=== PATIENT | female | born 1940 | race Caucasian/White ===

== ENCOUNTER 2020-12-19 05:38 | Inpatient (IN) | payer BC, MEDICARE, OTHER ==
[~2020-12-19] VITALS: Ht 165.1 cm; Wt 65.8 kg
[~2020-12-19 05:38] MED LIST: DESO15CR11 TP; DIPH25CA83 PO; HYDR25TA4 PO; IBUP-1957 PO; OLME20TA13 PO
--- NOTE | 2020-12-19 06:00 | NUR ---
Patient BIB [facility] from home for c/o weakness. Patient states she was sitting on edge of bed and slid down. Denies head trauma from fall today. Is A/Ox3. Denies N/V or diarrhea and SOB, CP.
[2020-12-19 06:15] LABS: HEMATOCRIT 39.7 % (31.2-41.9); MEAN CORPUSCULAR HEMOGLOBIN 28.4 uug (24.7-32.8); MEAN CORPUSCULAR VOLUME 86.3 fL (75.5-95.3); PLATELET COUNT (AUTO) 242 K/uL (179-408)
--- NOTE | 2020-12-19 06:15 | NUR ---
ERMD into eval patient
[2020-12-19 06:26] LABS: *BILIRUBIN,URIN NEGATIVE (NEGATIVE); *BLOOD, URINE NEGATIVE (NEGATIVE); *CLARITY,URINE CLEAR (CLEAR); *COLOR,URINE YELLOW (YELLOW); *KETONES,URINE NEGATIVE (NEGATIVE); *UROBILINOGEN,URINE 0.2 E.U./dl (NORMAL); LEUKOCYTE ESTERASE ,URINE NEGATIVE (NEGATIVE); NITRITE, URINE NEGATIVE (NEGATIVE); UGLUCOSE NEGATIVE (NEGATIVE)
[2020-12-19 06:31] LABS: POTASSIUM 3.3 mmol/L (3.5-5.1)
[2020-12-19] MEDS ORDERED: gabapentin PO (06:36)
[2020-12-19] MEDS ORDERED: DULO20CA PO (06:36)
[2020-12-19] MEDS ORDERED: ASPIRIN 81 MG TAB.CHEW ONE (06:42)
[2020-12-19 06:44] LABS: BILIRUBIN,DIRECT 0.1 mg/dL (0.0-0.2); BILIRUBIN,TOTAL 0.4 mg/dL (0.2-1.0); TOTAL PROTEIN, SERUM 7.4 g/dL (6.4-8.2)
[2020-12-19] MEDS ORDERED: ASPIRIN 81 MG TAB.CHEW PO ONE (06:45)
[2020-12-19] MEDS ORDERED: DEXAMETHASONE SOD PHOSPHATE 4 MG INJ IV ONE (06:45)
[2020-12-19] MEDS ORDERED: POTASSIUM BICARBONATE/CIT AC 25 MEQ TABLET.EFF PO ONE (06:45)
--- NOTE | 2020-12-19 06:49 | NUR ---
Troponin 0.115 per Baldemar in lab - relayed to ER
[2020-12-19] MEDS ORDERED: DEXAMETHASONE SOD PHOSPHATE 10 MG INJ ONE (06:51)
[2020-12-19] MEDS ORDERED: POTASSIUM BICARBONATE/CIT AC 25 MEQ TABLET.EFF ONE (06:55)
[2020-12-19] MEDS ORDERED: IV NS 1000 ML 1,000 ML IV ONE (07:00)
[2020-12-19] MEDS ORDERED: IV NORMAL SALINE 250 ML IV ONE (08:03)
[2020-12-19] MEDS ORDERED: IOHEXOL 350 100 ML INFUS..BTL ONE (08:03)
[2020-12-19] MEDS ORDERED: SWABABLE VALVE TRANSFER SET EA MC ONE (08:03)
--- NOTE | 2020-12-19 09:16 | NUR ---
0725am: 1st contact with patient : AOX4, respiration:easy, afebrile, calm, in a bañuelos's position on gurney, position changes assisted, comfort and safety measures maintained 0900am: patient is for CTA chest and COVID isolation telemetry bed, no available telemetry nurse at this time per 3rd floor machine ii cutter Merlie 0910am: patient is now in CT scan at this time with mask on 0915am: Per Dr Porter, this patient was accepted by [facility] Ta Delaney for telemetry admission with admission diagnoses of COVID pneumonia and elevated troponin 0916am: nursing supervisor education Hyd notified re: need for COVID isolation telemetry nurse & bed, pending callback
--- NOTE | 2020-12-19 09:56 | NUR ---
Patient voided by bedside commode, no shortness of breath seen, denies chest pains, SpO2 levels=88%-92% room air, nasal cannula was placed, new gown on, new linen replaced on gurney. Patient is still waiting for [facility] telemetry bed and nurse.
--- NOTE | 2020-12-19 11:41 | NUR ---
Patient was seen resting comfortably on gurney with eyes closed. SpO2 levels with nasal cannula@2 liters were 92%-96% in supine position. Patient ate the bread from her ham sandwich and drank all the juices. Patient was updated regarding her room & telemetry nurse's availability. All concerns and questions were answered.
[2020-12-19] MEDS ORDERED: ALBUTEROL SULFATE 8 GM HFA.AER.AD IH PRN (11:45)
[2020-12-19] MEDS ORDERED: ONDANSETRON 4 MG/2 ML VIAL IV PRN (11:45)
--- NOTE | 2020-12-19 12:20 | NUR ---
JAY Kirkpatrick accepted nursing hands report. Patient's lunch tray@bedside.
[2020-12-19 12:30] VITALS: BP 135/57
--- NOTE | 2020-12-19 13:00 | NUR ---
RECEIVED REPORT OF PT FROM JAY ALFARO. PT ADMITTED TO TELE FOR COVID/PNA/NSTEMI. PT ON 2L O2 VIA NC, SATURATING AT 97%, ON ROOM AIR PT DESATS TO 92%. PT HS SOB WITH EXERTION, C/O SEVERE WEAKNESS, IV ON THE RIGHT AC 20G, SL, TROPONIN LEVELS 0.115. PT A/OX4 BED LOW AND LOCKED, ISOLATION FOR COVID, CALL LIGHT WITHIN REACH, WILL CONTINUE WITH PLAN OF CARE. ,
[2020-12-19] MEDS: ACETAMINOPHEN 325 MG TABLET PO PRN ×2 (13:53→20:47)
[2020-12-19 16:00] VITALS: BP 130/54
[2020-12-19 20:39] VITALS: BP 177/88
[2020-12-19] MEDS: hydrALAZINE HCL 20 MG/1 ML VIAL IV PRN (20:48)
--- NOTE | 2020-12-19 21:45 | NUR ---
Received pt resting in bed. AAO x4. On 2L O2 via NC, no acute distress noted. BP elevated 177/88. Notified Rhett BLADE WORKER with new order for Hydralazine 10mg IV q4h prn. Carried out order. Pt denies CP, SOB, and dizziness. Safety measures maintained. Call light and personal items within reach. Will continue to monitor.
[2020-12-20 00:14] VITALS: BP 178/51
[2020-12-20] MEDS: hydrALAZINE HCL 20 MG/1 ML VIAL IV PRN (00:56)
[2020-12-20 04:00] VITALS: BP 126/66
[2020-12-20 06:45] LABS: HEMATOCRIT 42.4 % (31.2-41.9); MEAN CORPUSCULAR HEMOGLOBIN 28.9 uug (24.7-32.8); MEAN CORPUSCULAR VOLUME 86.4 fL (75.5-95.3); PLATELET COUNT (AUTO) 264 K/uL (179-408)
[2020-12-20 07:27] LABS: BILIRUBIN,TOTAL 0.3 mg/dL (0.2-1.0); CREATININE 0.9 mg/dL (0.6-1.3); MAGNESIUM 2.1 mg/dL (1.8-2.4); PHOSPHOROUS 2.8 mg/dL (2.5-4.9); POTASSIUM 3.5 mmol/L (3.5-5.1); TOTAL PROTEIN, SERUM 7.6 g/dL (6.4-8.2)
--- NOTE | 2020-12-20 07:30 | NUR ---
Received patient awake in bed. AOx4. On 2L NC, saturating at 96-97%. No signs of acute distress. Patient denies pain/ discomfort. Patient with right AC #20 heplock, patent and intact. Call light within reach. Will continue to monitor.
[2020-12-20] MEDS ORDERED: POTASSIUM CHLORIDE 20 MEQ POWDER PACKET GT ONE (07:45)
[2020-12-20] MEDS ORDERED: POTASSIUM CHLORIDE 20 MEQ TAB.PRT.SR PO ONE (08:00)
[2020-12-20] MEDS ORDERED: ENOXAPARIN SODIUM 40 MG/0.4 ML DISP.SYRIN SQ SCH (09:00)
[2020-12-20] MEDS ORDERED: ASPIRIN 81 MG TAB.CHEW PO SCH (09:00)
[2020-12-20] MEDS ORDERED: Medication Not On Formulary EA (Olmesartan Medoxomil (Benicar) 20 MG) PO SCH (09:00)
[2020-12-20] MEDS: DULOXETINE 20 MG CAPSULE.DR PO SCH ×2 (09:08→16:21)
[2020-12-20] MEDS: VALSARTAN 160 MG TABLET PO SCH (09:08)
[2020-12-20] MEDS: ACETAMINOPHEN 325 MG TABLET PO PRN (09:12)
[2020-12-20 11:42] VITALS: BP 135/70
[2020-12-20] MEDS ORDERED: REMDESIVIR (CHARGED) 200 MG in IV NORMAL SALINE 210 ML IV ONE (14:00)
[2020-12-20] MEDS: DEXAMETHASONE SOD PHOSPHATE 4 MG INJ IV SCH (14:18)
[2020-12-20] MEDS ORDERED: GABA300C PO (15:47)
[2020-12-20] MEDS ORDERED: DULO60CA45 PO (15:53)
[2020-12-20] MEDS ORDERED: TRAZ-182 PO (15:55)
[2020-12-20 15:56] VITALS: BP 100/67
[2020-12-20] MEDS ORDERED: FURO-152 PO (15:56)
--- NOTE | 2020-12-20 18:58 | NUR ---
Patient resting in bed. On 2L O2 via NC, saturating 98-99%. No signs of acute distress. Patient denies pain/ discomfort. Compliant with medications and care. Safety measures provided. Needs anticipated and met. Will endorse to incoming shift for continuity of care.
--- NOTE | 2020-12-20 19:00 | NUR ---
Patient report received. Patient is seen resting in bed. Awake, alert and oriented x 3 to person, place, and time. Patient noted to have occasional confusion. No signs of distress at this time. Patient is comfortable on 2 L of oxygen Via Nasal Cannula. Oxygen saturation within normal limits. No reports of pain. Patient is ambulatory. IV left AC, patent. Skin intact. Call light within reach. Bed in low and locked position. Fall and safety precautions in place.
[2020-12-20 20:00] VITALS: BP 136/72
[2020-12-20] MEDS ORDERED: OLME20TA13 PO (20:29)
[2020-12-21] VITALS: BP 131/67
[2020-12-21 04:00] VITALS: BP 153/58
[2020-12-21 07:32] LABS: HEMATOCRIT 41.1 % (31.2-41.9); MEAN CORPUSCULAR HEMOGLOBIN 28.9 uug (24.7-32.8); MEAN CORPUSCULAR VOLUME 87.3 fL (75.5-95.3); PLATELET COUNT (AUTO) 261 K/uL (179-408)
[2020-12-21 07:47] LABS: BILIRUBIN,DIRECT 0.1 mg/dL (0.0-0.2); BILIRUBIN,TOTAL 0.3 mg/dL (0.2-1.0); CREATININE 0.8 mg/dL (0.6-1.3); POTASSIUM 3.4 mmol/L (3.5-5.1); TOTAL PROTEIN, SERUM 7.4 g/dL (6.4-8.2)
[2020-12-21] MEDS: DULOXETINE 20 MG CAPSULE.DR PO SCH ×2 (09:11→17:07)
[2020-12-21] MEDS: DEXAMETHASONE SOD PHOSPHATE 4 MG INJ IV SCH (09:12)
[2020-12-21] MEDS ORDERED: POTASSIUM CHLORIDE 20 MEQ TAB.PRT.SR PO ONE ×2 (09:15→09:30)
[2020-12-21] MEDS: APIXABAN 5 MG TABLET PO SCH ×2 (09:20→20:57)
[2020-12-21] MEDS: VALSARTAN 160 MG TABLET PO SCH (09:30)
[2020-12-21] MEDS: AMIODARONE HCL 200 MG TABLET PO SCH ×2 (09:31→20:56)
[2020-12-21 12:00] VITALS: BP 144/83
[2020-12-21] MEDS: REMDESIVIR (CHARGED) 100 MG in IV NORMAL SALINE 100 ML IV SCH (13:20)
[2020-12-21 16:26] VITALS: BP 152/73
--- NOTE | 2020-12-21 18:17 | NUR ---
End of Shift Note Patient continue ATB treatment for covid+. Patient continue on oxygen at 2LPM at nasal cannula, saturation ar 93-95%. Patient spoke to daughter regarding condition of . Patient verbalize sadness, able to cope with family support. Patient no c/o of pain/discomfort noted. will continue monitor
--- NOTE | 2020-12-21 19:45 | NUR ---
Received pt in bed, awake and verbally responsive, able to make needs known. On oxygen at 2LPM, no signs of distress noted. Denies pain or discomfort. IV access intact and patent. Safety measures initiated, call light within reach.
[2020-12-21 20:35] VITALS: BP 137/68
[2020-12-21] MEDS: ACETAMINOPHEN 325 MG TABLET PO PRN (20:35)
--- NOTE | 2020-12-21 20:56 | NUR ---
Pt on NSR on tele at 55/min. Held amiodarone 200mg due to HR <60. will continue to monitor.
[2020-12-22 00:29] VITALS: BP 129/63
[2020-12-22] MEDS: ACETAMINOPHEN 325 MG TABLET PO PRN ×2 (03:36→12:07)
[2020-12-22] MEDS: hydrALAZINE HCL 20 MG/1 ML VIAL IV PRN (04:28)
[2020-12-22 04:33] VITALS: BP 166/62
--- NOTE | 2020-12-22 06:24 | NUR ---
Slept intermittently through the night, no signs of distress noted. Tolerated due medications well. Instructed pt how to do oral care. All needs attended to and met. No significant change in condition noted through the night.
[2020-12-22 07:45] LABS: HEMATOCRIT 42.5 % (31.2-41.9); MEAN CORPUSCULAR HEMOGLOBIN 28.8 uug (24.7-32.8); MEAN CORPUSCULAR VOLUME 86.8 fL (75.5-95.3); PLATELET COUNT (AUTO) 320 K/uL (179-408)
[2020-12-22 08:14] LABS: BILIRUBIN,DIRECT 0.1 mg/dL (0.0-0.2); BILIRUBIN,TOTAL 0.3 mg/dL (0.2-1.0); POTASSIUM 3.9 mmol/L (3.5-5.1); TOTAL PROTEIN, SERUM 7.2 g/dL (6.4-8.2)
[2020-12-22] MEDS: DULOXETINE 20 MG CAPSULE.DR PO SCH ×2 (08:43→17:08)
[2020-12-22] MEDS: DEXAMETHASONE SOD PHOSPHATE 4 MG INJ IV SCH (08:43)
[2020-12-22] MEDS: APIXABAN 5 MG TABLET PO SCH ×2 (08:46→21:45)
[2020-12-22] MEDS: VALSARTAN 160 MG TABLET PO SCH (08:53)
[2020-12-22] MEDS: AMIODARONE HCL 200 MG TABLET PO SCH ×2 (08:53→21:01)
[2020-12-22 11:12] VITALS: BP 157/70
[2020-12-22] MEDS: REMDESIVIR (CHARGED) 100 MG in IV NORMAL SALINE 100 ML IV SCH (13:22)
[2020-12-22 15:31] VITALS: BP 132/72
--- NOTE | 2020-12-22 19:31 | NUR ---
Patient resting in bed. AOx4. On 2L O2 via NC, saturating at 96-97%. No signs of acute distress. Patient denies pain/ discomfort. Compliant with medications and care. Safety measures provided. Needs anticipated and met. Call light within reach. Will endorse to incoming shift for continuity of care.
[2020-12-22 20:24] VITALS: BP 151/88
[2020-12-23 00:09] VITALS: BP 175/72
[2020-12-23 01:02] VITALS: BP 149/89
[2020-12-23 04:24] VITALS: BP 161/77
[2020-12-23] MEDS: hydrALAZINE HCL 20 MG/1 ML VIAL IV PRN ×2 (06:15→20:58)
--- NOTE | 2020-12-23 06:43 | NUR ---
Patient slept intermittently.O2 at 2LPM via NC saturating at 95%.No respiratory distress noted. Able to ambulates to bathroom . Denies pain at this time. Bp > 160 this morning . Medicated with hydralazine IVP ..No a/r noted.Iv on left hand patent and intact.Continue on isolation precaution for covid. SAfety measures in place. Will endorse to oncoming shift.
[2020-12-23 08:24] LABS: HEMATOCRIT 43.8 % (31.2-41.9); MEAN CORPUSCULAR HEMOGLOBIN 28.3 uug (24.7-32.8); MEAN CORPUSCULAR VOLUME 86.1 fL (75.5-95.3); PLATELET COUNT (AUTO) 373 K/uL (179-408)
[2020-12-23 08:46] LABS: BILIRUBIN,DIRECT 0.1 mg/dL (0.0-0.2); BILIRUBIN,TOTAL 0.5 mg/dL (0.2-1.0); CREATININE 0.9 mg/dL (0.6-1.3); MAGNESIUM 2.3 mg/dL (1.8-2.4); POTASSIUM 3.2 mmol/L (3.5-5.1); TOTAL PROTEIN, SERUM 7.3 g/dL (6.4-8.2)
[2020-12-23] MEDS: DULOXETINE 20 MG CAPSULE.DR PO SCH ×2 (09:08→16:32)
[2020-12-23] MEDS: APIXABAN 5 MG TABLET PO SCH ×2 (09:09→21:34)
[2020-12-23] MEDS: VALSARTAN 160 MG TABLET PO SCH (09:14)
[2020-12-23] MEDS: DEXAMETHASONE SOD PHOSPHATE 4 MG INJ IV SCH (09:15)
[2020-12-23] MEDS: AMIODARONE HCL 200 MG TABLET PO SCH ×2 (09:15→20:58)
[2020-12-23] MEDS ORDERED: POTASSIUM CHLORIDE 20 MEQ TAB.PRT.SR PO ONE (10:00)
[2020-12-23] MEDS: ACETAMINOPHEN 325 MG TABLET PO PRN ×2 (11:55→20:57)
[2020-12-23 12:00] VITALS: BP 157/62
[2020-12-23] MEDS: REMDESIVIR (CHARGED) 100 MG in IV NORMAL SALINE 100 ML IV SCH (13:16)
[2020-12-23 16:00] VITALS: BP 159/67
[2020-12-23 20:25] VITALS: BP 164/71
[2020-12-24] VITALS (8 sets, daily range): BP systolic 105–164; BP diastolic 52–79
[2020-12-24] MEDS: ACETAMINOPHEN 325 MG TABLET PO PRN ×2 (06:52→20:19)
--- NOTE | 2020-12-24 07:04 | NUR ---
Pt slept throughout the night. Denies SOB or chest pain. Able to make needs known. Tolerates room air. Safety and comfort provided. Will endorse to day shift.
[2020-12-24 07:19] LABS: HEMATOCRIT 43.8 % (31.2-41.9); MEAN CORPUSCULAR HEMOGLOBIN 28.5 uug (24.7-32.8); MEAN CORPUSCULAR VOLUME 85.9 fL (75.5-95.3); PLATELET COUNT (AUTO) 410 K/uL (179-408)
[2020-12-24 07:54] LABS: BILIRUBIN,DIRECT 0.1 mg/dL (0.0-0.2); BILIRUBIN,TOTAL 0.4 mg/dL (0.2-1.0); CREATININE 0.9 mg/dL (0.6-1.3); POTASSIUM 3.7 mmol/L (3.5-5.1); TOTAL PROTEIN, SERUM 7.2 g/dL (6.4-8.2)
[2020-12-24] MEDS: DEXAMETHASONE SOD PHOSPHATE 4 MG INJ IV SCH (08:36)
[2020-12-24] MEDS: AMIODARONE HCL 200 MG TABLET PO SCH ×2 (08:38→20:20)
[2020-12-24] MEDS: FUROSEMIDE 20 MG TABLET PO SCH ×2 (08:38→17:06)
[2020-12-24] MEDS: GABAPENTIN 300 MG CAPSULE PO SCH ×2 (08:39→17:06)
[2020-12-24] MEDS: DULOXETINE 20 MG CAPSULE.DR PO SCH (08:39)
[2020-12-24] MEDS: VALSARTAN 160 MG TABLET PO SCH (08:39)
[2020-12-24] MEDS: APIXABAN 5 MG TABLET PO SCH ×2 (08:40→20:22)
[2020-12-24] MEDS ORDERED: DULOXETINE 60 MG CAPSULE.DR PO SCH ×2 (09:00)
--- NOTE | 2020-12-24 11:20 | NUR ---
PATIENT SEEN AND EXAMINED BY DR MCRAE WITH NEW ORDERS AND NOTED.
[2020-12-24] MEDS: REMDESIVIR (CHARGED) 100 MG in IV NORMAL SALINE 100 ML IV SCH (13:16)
--- NOTE | 2020-12-24 13:49 | NUR ---
D/C PLANNING CALL RECEIVED FROM PATIENTS DAUGHTER STATED THAT SHE LIVES IN [place] AND IS ARRANGING FOR HER MOM TO COME STAY WITH HER WILL BE ABLE TO PICK HER UP TOMORROW DONELL HYATT HERE AND AWARE STATED WILL PREPARE THE DISCHARGE TODAY BUT ITS OKAY IF THE DAUGHTER PICKS HER UP TOMORROW.
--- NOTE | 2020-12-24 14:40 | NUR ---
CALL RECEIVED FROM PATIENTS DAUGHTER TYLER STATED THAT NO ONE HAS CALLED HER RE PLANS FOR HER MOMS CARE POST DISCHARGE SHE WILL NOT BE ABLE TO CARE FOR SELF WILL NEED TO HIRE HELP MESSAGE SENT TO [employer] THE [employer] OPERATOR WITH [employer] PHONE NUMBER TO REACH OUT TO HER.
[2020-12-24] MEDS ORDERED: AMIO200T5 PO ×2 (16:58→17:10)
[2020-12-24] MEDS ORDERED: VALS160T2 PO (16:58)
[2020-12-24] MEDS ORDERED: APIX5TAB PO (16:58)
[2020-12-24] MEDS: DULOXETINE 60 MG CAPSULE.DR PO SCH (17:06)
--- NOTE | 2020-12-24 18:23 | NUR ---
CALL RECEIVED FROM PATIENTS DAUGHTER STATED THAT SHE SPOKE WITH PURNIMA AND STATED THAT SHE WILL NOT BE ABLE TO TAKE HER MOM HOME TOMORROW IF SHE IS STILL COVID POSITIVE ENCOURAGED HER TO CALL TOMORROW AND MAYBE THE PEST CONTROL SERVICE REPRESENTATIVE WILL HELP HER FIND PLACEMENT BAS4ED ON HER INSURANCE ALSO WANTED TO TALK WITH THE PROVIDER [employer] PHONE NUMBER GIVEN TO HER .
--- NOTE | 2020-12-24 19:30 | NUR ---
RECEIVED PT AWAKE, ALERT AND ORIENTEDX3. PT IN NO ACUTE DISTRESS. IV INTACT. PT ON ROOM AIR. PT ON SINUS RHYTHM. SAFETY AND COMFORT PROVIDED. WILL CONTINUE TO MONITOR.
[2020-12-24] MEDS: TRAZODONE 50 MG TABLET PO SCH (20:19)
[2020-12-25] VITALS: BP 107/48
[2020-12-25 04:00] VITALS: BP 108/52
--- NOTE | 2020-12-25 06:33 | NUR ---
PT SLEPT INTERMITTENTLY. PT IN NO ACUTE RESPIRATORY DISTRESS. IV INTACT. PT ON ROOM AIR. PT ON SINUS RHYTHM. TYLENOL 650 MG PRN GIVEN AT 2019H. PRESCRIBED MEDICATION GIVEN AND PT TOLERATED IT WELL. SAFETY AND COMFORT PROVIDED. ALL NEEDS ARE MET. WILL ENDORSE TO INCOMING NURSE FOR CONTINUITY OF CARE.
--- NOTE | 2020-12-25 07:30 | NUR ---
Received resting but easily arousable. Breathing even and unlabored. No sob noted. Denies pain or difficulty breathing Spo2 98% on room air. Patient has no complaints at this time. Safety measures in place. Kept comfortable. Call light within reach. Will continue to monitor.
[2020-12-25] MEDS: FUROSEMIDE 20 MG TABLET PO SCH ×2 (08:58→16:09)
[2020-12-25] MEDS: DULOXETINE 60 MG CAPSULE.DR PO SCH ×2 (08:58→16:09)
[2020-12-25] MEDS: AMIODARONE HCL 200 MG TABLET PO SCH ×2 (08:59→20:33)
[2020-12-25] MEDS: GABAPENTIN 300 MG CAPSULE PO SCH ×2 (08:59→16:09)
[2020-12-25] MEDS: DEXAMETHASONE SOD PHOSPHATE 4 MG INJ IV SCH (09:00)
[2020-12-25] MEDS: APIXABAN 5 MG TABLET PO SCH ×2 (09:01→21:29)
[2020-12-25] MEDS: ENSURE ENLIVE (VAN) 240 ML LIQUID PO SCH (09:02)
--- NOTE | 2020-12-25 10:00 | NUR ---
Patient stated she doesn't want [facility] right now.
[2020-12-25 11:00] VITALS: BP 125/59
[2020-12-25] MEDS: ACETAMINOPHEN 325 MG TABLET PO PRN ×2 (11:33→20:33)
[2020-12-25] MEDS: VALSARTAN 160 MG TABLET PO SCH (11:33)
[2020-12-25 15:48] VITALS: BP 96/54
--- NOTE | 2020-12-25 17:07 | NUR ---
Spoke with patient's dtr and given update. Sue BLACKWELL provided dtr's phone number per request re rehab placement.
--- NOTE | 2020-12-25 19:19 | NUR ---
Alert and oriented with episodes of forgetfulness. No respiratory distress. On room air spo2 94%. Denies pain or discomfort. Iv intact and patent. Safety maintained. Needs attended. Kept comfortable. Call light within reach. Endorsed accordingly.
--- NOTE | 2020-12-25 19:30 | NUR ---
RECEIVED PT AWAKE, ALERT AND ORIENTEDX3 WITH EPISODES OF FORGETFULNESS. PT IN NO ACUTE RESPIRATORY DISTRESS. IV INTACT. PT ON ROOM AIR. PT ON SINUS RHYTHM. PT CAN MAKE HER NEEDS KNOWN. SAFETY AND COMFORT PROVIDED. WILL CONTINUE TO MONITOR.
[2020-12-25 20:00] VITALS: BP 114/57
[2020-12-25] MEDS: TRAZODONE 50 MG TABLET PO SCH (20:32)
[2020-12-26] VITALS: BP 101/47
[2020-12-26 04:00] VITALS: BP 126/62
--- NOTE | 2020-12-26 06:16 | NUR ---
PT SLEPT INTERMITTENTLY. PT IN NO ACUTE DISTRESS. IV INTACT. PT ON ROOM AIR. PRESCRIBED MEDICATION GIVEN AND PT TOLERATED IT WELL. TYLENOL PRN 650MG GIVEN AT 2032H. PT HAD TENDENCY TO FORGET. NEEDS REORIENTATION. SAFETY AND COMFORT PROVIDED. WILL ENDORSE TO INCOMING NURSE FOR CONTINUITY OF CARE.
[2020-12-26 08:00] VITALS: BP 118/60
--- NOTE | 2020-12-26 08:00 | NUR ---
Received patient alert/orientedx3. On room air, no respiratory distress noted. IV heplock intact to the left hand. Call light within reach. Maintained safety precautions. Will continue to monitor.
[2020-12-26] MEDS: DEXAMETHASONE SOD PHOSPHATE 4 MG INJ IV SCH (08:39)
[2020-12-26] MEDS: FUROSEMIDE 20 MG TABLET PO SCH ×2 (08:39→16:04)
[2020-12-26] MEDS: GABAPENTIN 300 MG CAPSULE PO SCH ×2 (08:39→16:04)
[2020-12-26] MEDS: VALSARTAN 160 MG TABLET PO SCH (08:39)
[2020-12-26] MEDS: DULOXETINE 60 MG CAPSULE.DR PO SCH ×2 (08:40→16:04)
[2020-12-26] MEDS: APIXABAN 5 MG TABLET PO SCH ×2 (08:42→20:39)
[2020-12-26] MEDS: AMIODARONE HCL 200 MG TABLET PO SCH ×2 (08:42→20:39)
[2020-12-26] MEDS: ENSURE ENLIVE (VAN) 240 ML LIQUID PO SCH (08:43)
--- NOTE | 2020-12-26 09:00 | NUR ---
Patient was noted with HR55. Amidarone was not given. Will continue to monitor.
[2020-12-26 11:00] VITALS: BP 121/53
[2020-12-26 16:00] VITALS: BP 114/50
--- NOTE | 2020-12-26 17:49 | NUR ---
Patient is alert/orientedx4. Denies pain or discomfort. Frequent visual checks done. MD made rounds and acknowledged. Heplock intact. Patient is on room air. No Distress identified. Call light within reach. All needs attended. All due meds given. Will continue to monitor for any significant changes.
--- NOTE | 2020-12-26 18:31 | NUR ---
Patient had 1 episode of emesis. She stated the rice for dinner got stuck on her throat and had to forcefully cough it out. Denies dizziness or nausea. Assisted with her needs. No concerns at this time. Denies pain and discomfort. Kept call light within reach. All due meds given. Will endorse to the next shift.
[2020-12-26 20:00] VITALS: BP_SYST 108; BP_SYST 114; BP_DIAS 60; BP_DIAS 69
[2020-12-26] MEDS: TRAZODONE 50 MG TABLET PO SCH (20:38)
[2020-12-27] VITALS: BP 103/58
[2020-12-27 04:00] VITALS: BP 117/59
--- NOTE | 2020-12-27 06:48 | NUR ---
Shift End Report: Uneventful night. All needs attended and met. Slept good,. VS stable.
--- NOTE | 2020-12-27 07:10 | NUR ---
received patient in bed sleeping in stable condition. patient on room air. no SOB, pain or discomfort noted. call light within reach. will continue to monitor.
[2020-12-27] MEDS: DEXAMETHASONE SOD PHOSPHATE 4 MG INJ IV SCH (08:54)
[2020-12-27] MEDS: FUROSEMIDE 20 MG TABLET PO SCH ×2 (08:56→17:09)
[2020-12-27] MEDS: GABAPENTIN 300 MG CAPSULE PO SCH ×2 (08:56→17:09)
[2020-12-27] MEDS: DULOXETINE 60 MG CAPSULE.DR PO SCH ×2 (08:57→17:09)
[2020-12-27] MEDS: AMIODARONE HCL 200 MG TABLET PO SCH ×2 (08:58→20:15)
[2020-12-27] MEDS: ENSURE ENLIVE (VAN) 240 ML LIQUID PO SCH (08:58)
[2020-12-27] MEDS: APIXABAN 5 MG TABLET PO SCH ×2 (09:00→20:14)
[2020-12-27] MEDS: VALSARTAN 160 MG TABLET PO SCH (09:27)
[2020-12-27 11:30] VITALS: BP 110/54
[2020-12-27 15:37] VITALS: BP 99/55
--- NOTE | 2020-12-27 18:15 | NUR ---
PATIENT IN BED AWAKE IN STABLE CONDITION HOB ELEVATED, NO COMPLAINS OF SOB, PAIN OR DISCOMFORT AT THIS TIME. ON ROOM AIR, SATURATION AT 96%. IV PATENT AND INTACT. CALL LIGHT AND BELONGINGS WITHIN REACH. WILL REPORT TO ONCOMING SHIFT.
--- NOTE | 2020-12-27 19:20 | NUR ---
Patient report received. Patient seen in her room resting in bed. Awake, alert and oriented x 3 to person, place, and time. No signs of distress at this time. Comfortable on room air. No reports of shortness of breath. Skin is intact. Fall and safety precautions in place. Call light within reach. Bed in low and locked position.
[2020-12-27] MEDS: TRAZODONE 50 MG TABLET PO SCH (20:13)
[2020-12-28 00:24] VITALS: BP 122/60
[2020-12-28 04:00] VITALS: BP 137/62
--- NOTE | 2020-12-28 07:04 | NUR ---
Patient resting in bed. Awake, alert and oriented x 3 to person, place, and time. Patient is comfortable on room air. No signs or reports of shortness of breath. Medications given as ordered. Fall and safety precautions in place. Call light witin reach. Patient is eager to go home.
--- NOTE | 2020-12-28 07:30 | NUR ---
Received patient is bed, awake and alert times 4 Patient is on room air saturation well. Patient has a left hand 20 gauge IV. No sign of distress noted at this time. Safety precautions are in place. Will continue to monitor.
[2020-12-28] MEDS: FUROSEMIDE 20 MG TABLET PO SCH (09:30)
[2020-12-28] MEDS: AMIODARONE HCL 200 MG TABLET PO SCH ×2 (09:30→20:24)
[2020-12-28] MEDS: VALSARTAN 160 MG TABLET PO SCH (09:30)
[2020-12-28] MEDS: DULOXETINE 60 MG CAPSULE.DR PO SCH ×2 (09:31→17:40)
[2020-12-28] MEDS: APIXABAN 5 MG TABLET PO SCH ×2 (09:31→20:24)
[2020-12-28] MEDS: GABAPENTIN 300 MG CAPSULE PO SCH ×2 (09:31→17:40)
[2020-12-28] MEDS: ENSURE ENLIVE (VAN) 240 ML LIQUID PO SCH (09:32)
[2020-12-28] MEDS: DEXAMETHASONE SOD PHOSPHATE 4 MG INJ IV SCH (09:32)
[2020-12-28 12:00] VITALS: BP 135/80
[2020-12-28 15:47] VITALS: BP 123/75
--- NOTE | 2020-12-28 19:43 | NUR ---
Patient left resting in bed no sign of distress noted. All medications given as ordered. Safety ,measures implemented. Will endorse to oncoming nurse.
[2020-12-28] MEDS: TRAZODONE 50 MG TABLET PO SCH (20:24)
[2020-12-28 20:25] VITALS: BP 120/61
[2020-12-29 04:35] VITALS: BP 137/53
--- NOTE | 2020-12-29 08:00 | NUR ---
PT IN BED RESTING, A/OX4, ON ROOM AIR, NO SIGNS OF DISTRESS, NO REPORTS OF PAIN. PT BED LOW AND LOCKED, CALL LIGHT WITHIN REACH, PT AMBULATORY, BRP, PT HAS LEFT HAND 22G SL. PT VITALS STABLE. WILL CONTINUE TO MONITOR.
[2020-12-29 09:02] VITALS: BP 137/63
[2020-12-29] MEDS: AMIODARONE HCL 200 MG TABLET PO SCH (09:03)
[2020-12-29 09:04] VITALS: BP 137/63
[2020-12-29] MEDS: FUROSEMIDE 20 MG TABLET PO SCH (09:04)
[2020-12-29] MEDS: DULOXETINE 60 MG CAPSULE.DR PO SCH (09:04)
[2020-12-29] MEDS: GABAPENTIN 300 MG CAPSULE PO SCH (09:04)
[2020-12-29] MEDS: VALSARTAN 160 MG TABLET PO SCH (09:04)
[2020-12-29] MEDS: APIXABAN 5 MG TABLET PO SCH (09:05)
[2020-12-29] MEDS: ENSURE ENLIVE (VAN) 240 ML LIQUID PO SCH (09:05)
[2020-12-29] MEDS: DEXAMETHASONE SOD PHOSPHATE 4 MG INJ IV SCH (09:05)
--- NOTE | 2020-12-29 10:00 | NUR ---
PT SECOND COVID RAPID TEST RESULT CAME BACK NEGATIVE. PT AND HOSPITALIST MADE AWARE.
--- NOTE | 2020-12-29 14:20 | NUR ---
PT DISCHARGED HOME WITH ALL BELONGINGS, PT AMBULATORY WITH WALKER, WALKER GIVEN TO PT FROM [facility], PT GOING HOME WITH DAUGHTER. PT VITALS WNL, EDUCATION GIVEN TO PT, PRESCRIPTION GIVEN TO PT. PT TAKEN DOWN IN WHEELCHAIR, ALL QUESTIONS ANSWERED BY HOSPITALIST PRIOR TO LEAVING.
[2020-12-30] MEDS ORDERED: AMIODARONE HCL 200 MG TABLET PO SCH (09:00)
== END 2020-12-29 14:20 | disposition home health service (06) | DRG 177 ==
LOC: ER 05:40 → TELE3 12:24 → MEDSURG3 12-27 11:32
PROVIDERS: ADMIT Hospitalist; ATTEND Nurse Practitioner Acute Care
PROC: XW033E5 Introduction of Remdesivir Anti-infective into Peripheral Vein, Percutaneous Approach, New Technology Group 5 (ICD-10-PCS; principal; 2020-12-20)
DX: U07.1 COVID-19 (principal); J12.82 Pneumonia due to coronavirus disease 2019; I21.A1 Myocardial infarction type 2; J96.01 Acute respiratory failure with hypoxia; J15.9 Unspecified bacterial pneumonia; I48.92 Unspecified atrial flutter; I10 Essential (primary) hypertension; Z88.0 Allergy status to penicillin; Z88.2 Allergy status to sulfonamides; F41.9 Anxiety disorder, unspecified; R53.1 Weakness; E87.6 Hypokalemia; E66.9 Obesity, unspecified; Z96.653 Presence of artificial knee joint, bilateral; Z87.891 Personal history of nicotine dependence; Z90.49 Acquired absence of other specified parts of digestive tract; G89.29 Other chronic pain; Z68.24 Body mass index [BMI] 24.0-24.9, adult; Z98.1 Arthrodesis status
CPT/HCPCS: 36415; 70030-TC; 71045; 71275; 83605; 83615; 83735; 84100; 85025; 85610; 85730; 86140; 93005; 97161; A4663; G0378; J0360; J1100; J1650; J2405; J3490; J3535; J7040; J7050; Q9967